=== PATIENT | female | born 1990 | race Two or more races ===

== ENCOUNTER 2017-12-01 07:17 | Emergency (ER) | payer SELFPAY ==
[~2017-12-01] VITALS: Ht 165.1 cm; Wt 61.2 kg
[2017-12-01 07:26] VITALS: BP 107/71
== END 2017-12-01 08:07 | disposition home or self-care (01) ==
LOC: ER 07:20
DX: T16.1XXA Foreign body in right ear, initial encounter (principal); W45.8XXA Other foreign body or object entering through skin, initial encounter; Y93.89 Activity, other specified; Y92.813 Airplane as the place of occurrence of the external cause; Y99.8 Other external cause status
CPT/HCPCS: 69200; 99284; A4606; Z7610